=== PATIENT | male | born 1990 | race Caucasian/White ===

== ENCOUNTER → 2019-08-25 | Emergency (ER) | payer BC, OTHER ==
[~2019-08-25] MED LIST: Bacitracin 1 PK ONE; Cephalexin 250 MG CAP ONE
== END ==
LOC: BURERS 17:00
DX: S71.112A Laceration without foreign body, left thigh, initial encounter (principal); W26.8XXA Contact with other sharp object(s), not elsewhere classified, initial encounter
CPT/HCPCS: 12001